=== PATIENT | female | born 1955 | race Two or more races ===

== ENCOUNTER 2022-11-17 09:49 | Emergency (ER) | payer OTHER ==
[2022-11-17 09:56] VITALS: BP 146/78; PULSE 89; RESP 18; TEMP 97.5
[2022-11-17 11:04] LABS: PH,URINE 6.5 (5.0-8.0); URINE APPEARANCE CLEAR; URINE BILIRUBIN NEGATIVE (NEGATIVE); URINE COLOR YELLOW; URINE GLUCOSE (UA) NEGATIVE (NEGATIVE); URINE KETONE NEGATIVE (NEGATIVE); URINE LEUK ESTERASE NEGATIVE (NEGATIVE); URINE NITRITE NEGATIVE (NEGATIVE); URINE PROTEIN NEGATIVE (NEGATIVE); URINE UROBILINOGEN 0.2 mg/dL (0.2-1.0)
[2022-11-17] MEDS ORDERED: ACETAMINOPHEN 325 MG TABLET (FP) PO ONE (11:29)
[2022-11-17] MEDS ORDERED: LIDOCAINE 5% TOPICAL PATCH TP ONE (11:29)
[2022-11-17] MEDS ORDERED: LIDOCAINE 5% TOPICAL PATCH ONE (11:38)
[2022-11-17] MEDS ORDERED: ACETAMINOPHEN 325 MG TABLET (FP) ONE (11:38)
[2022-11-17 12:12] LABS: BASO % 0.6 % (0-2.0); EOS % 1.2 % (0-4.5); HEMATOCRIT 45.4 % (32.4-45.2); HEMOGLOBIN 15.2 GM/dL (10.7-15.3); LYMPH % 38.5 % (8-40); MCH 31.3 pg (25.7-33.7); MCHC 33.5 g/dl (32.0-36.0); MEAN CELL VOLUME 93.3 fl (80-96); MEAN PLT VOLUME 8.9 fl (7.5-11.1); NEUT % 49.7 % (42.8-82.8); PLATELET COUNT 198 10^3/uL (134-434); RBC 4.86 M/mm3 (3.60-5.2); RDW 14.5 % (11.6-15.6); WHITE BLOOD COUNT 4.2 K/mm3 (4.0-10.0)
[2022-11-17 12:17] LABS: ALBUMIN 3.6 g/dl (3.4-5.0); CALCIUM 9.1 mg/dL (8.5-10.1)
[2022-11-17 12:20] LABS: CREATININE 0.7 mg/dL (0.55-1.3)
[2022-11-17 12:21] LABS: BILIRUBIN,TOTAL 0.4 mg/dL (0.2-1)
[2022-11-17 12:22] LABS: TOT PROT 7.1 g/dl (6.4-8.2)
[2022-11-17] MEDS ORDERED: KETOROLAC TROMETHAMINE 15 MG/ML VIAL IVPUSH ONE (12:25)
[2022-11-17] MEDS ORDERED: KETOROLAC TROMETHAMINE 15 MG/ML VIAL ONE (13:13)
[2022-11-17] MEDS ORDERED: LIDOCAINE PATCH REMOVAL MC SCH (22:00)
== END 2022-11-17 14:41 | disposition home or self-care (01) ==
LOC: JER 09:49
PROC: 3E0333Z Introduction of Anti-inflammatory into Peripheral Vein, Percutaneous Approach (ICD-10-PCS; principal; 2022-11-17)
DX: S33.5XXA Sprain of ligaments of lumbar spine, initial encounter (principal); X50.1XXA Overexertion from prolonged static or awkward postures, initial encounter
CPT/HCPCS: 36415; 72170-TC-FY; 73502-TC-LT-FY; 74177-TC; 80053; 81003; 83690; 85025; 87086; 99285-25; Q9967